=== PATIENT | female | born 1995 | race African-American/Black ===

== ENCOUNTER 2021-09-22 09:24 | Emergency (ER) | payer SELFPAY ==
[~2021-09-22] VITALS: Ht 162.6 cm; Wt 78.2 kg
[2021-09-22] MEDS ORDERED: DIPH25CA85 PO (09:36)
[2021-09-22] MEDS ORDERED: antidepressant PO (09:36)
[2021-09-22] MEDS ORDERED: SODIUM CHLORIDE 0.9% 1,000 ML IV ONE (10:00)
[2021-09-22] MEDS ORDERED: ONDANSETRON HCL 4 MG/2 ML VIAL IVP ONE (10:00)
[2021-09-22 10:07] LABS: BASOPHILS % (AUTO) 0.5 % (0.0-2.0); EOSINOPHILS % (AUTO) 0.5 % (1.0-6.0); HEMATOCRIT 38.2 % (36-46); LYMPHOCYTES # (AUTO) 1.4 K/uL (1.0-4.8); MEAN CORPUSCULAR HEMOGLOBIN 30.9 pg (26.0-34.0); MEAN CORPUSCULAR HGB CONC 34.1 G/dL (31.0-37.0); MEAN CORPUSCULAR VOLUME 91 fL (80-100); MONOCYTES # (AUTO) 0.4 K/uL (0.1-1.0); MONOCYTES % (AUTO) 6.4 % (2.0-9.0); NEUTROPHILS # (AUTO) 4.6 K/uL (1.8-7.7); NEUTROPHILS % (AUTO) 70.6 % (40.0-70.0); PLATELET COUNT (AUTO) 445 K/uL (150-450); RED BLOOD CELL COUNT(AUTO) 4.22 MIL/uL (4.00-5.20); RED CELL DISTRIBUTION WIDTH 13.5 % (11.5-14.5)
[2021-09-22 10:21] LABS: ANION GAP 10 mmol/L (8-16); CALCIUM, TOTAL 9.4 mg/dL (8.8-10.5); CARBON DIOXIDE 27 mmol/L (22-29); CHLORIDE 101 mmol/L (98-107); CREATININE 0.79 mg/dL (0.60-1.30); GLOMERULAR FILTR. RATE CALC > 60 mL/min (>60); GLUCOSE,RANDOM 99 mg/dL (70-110); POTASSIUM 3.7 mmol/L (3.5-5.1); SODIUM SERUM 138 mmol/L (136-145); UREA NITROGEN, BLOOD 10 mg/dL (7-18)
[2021-09-22 10:24] LABS: COVID AG,FIA SOURCE NASAL SWAB
[2021-09-22 10:32] LABS: ALANINE AMINOTRANSFERASE 19 U/L (12-78); ALBUMIN 4.1 g/dL (3.4-5.0); ALKALINE PHOSPHATASE 57 U/L (46-116); ASPARTATE AMINOTRANSFERASE 10 U/L (15-37); BILIRUBIN,TOTAL 0.4 mg/dL (0.1-1.0); HCG,QUANTITATIVE < 1 mIU/mL (0-6); LIPASE 108 U/L (73-393); TOTAL PROTEIN, SERUM 8.6 g/dL (6.4-8.2)
[2021-09-22 11:06] LABS: INFLUENZA TYPE A NEGATIVE FOR TYPE A (NEGATIVE); INFLUENZA TYPE B NEGATIVE FOR TYPE B (NEGATIVE)
[2021-09-22 12:01] LABS: APPEARANCE,URINE HAZY (CLEAR); BILIRUBIN,URINE NEGATIVE (NEGATIVE); GLUCOSE, URINE (UA) NEGATIVE (NEGATIVE); KETONES,URINE =>150 mg/dL (NEGATIVE); LEUKOCYTE ESTERASE ,URINE TRACE (NEGATIVE); NITRATE,URINE NEGATIVE (NEGATIVE); OCCULT BLOOD,URINE NEGATIVE (NEGATIVE); PROTEIN,URINE 30-70 mg/dL (NEGATIVE); SPECIFIC GRAVITIY, URINE 1.037 (1.003-1.030)
[2021-09-22 12:02] LABS: BACTERIA,URINE None Seen /HPF (None Seen); RBC,URINE None Seen /HPF (0-2); SQUAMOUS EPITHELIAL CELL,UR Few /LPF (None Seen); WBC,URINE 0-2 /HPF (0-5)
[2021-09-22] MEDS ORDERED: ONDA-104 PO (12:40)
[2021-09-22 13:21] VITALS: BP 121/73
== END 2021-09-22 13:23 | disposition home or self-care (01) ==
LOC: EMS 09:28
DX: R10.30 Lower abdominal pain, unspecified (principal); R11.2 Nausea with vomiting, unspecified; Z79.899 Other long term (current) drug therapy
CPT/HCPCS: 99283; 96374; 96361; 87426; 80053; 81001; 83690; 84702; 85025; 87804; 36415; J2405; J7030

== ENCOUNTER 2021-09-27 11:34 | Emergency (ER) | payer OTHER ==
[~2021-09-27] VITALS: Ht 162.6 cm; Wt 77.3 kg
[~2021-09-27 11:34] MED LIST: DIPH25CA85 PO; ONDA-104 PO; antidepressant PO
[2021-09-27] MEDS ORDERED: ONDANSETRON HCL 4 MG/2 ML VIAL IVP ONE (13:30)
[2021-09-27] MEDS ORDERED: KETOROLAC TROMETHAMINE 30 MG/ML VIAL IVP ONE (13:30)
[2021-09-27] MEDS ORDERED: SODIUM CHLORIDE 0.9% 1,000 ML IV ONE (13:30)
[2021-09-27 13:31] LABS: BASOPHILS % (AUTO) 0.3 % (0.0-2.0); EOSINOPHILS % (AUTO) 0.2 % (1.0-6.0); HEMOGLOBIN 13.8 g/dL (12.0-16.0); LYMPHOCYTES % (AUTO) 23.9 % (22.0-44.0); MEAN CORPUSCULAR HEMOGLOBIN 30.7 pg (26.0-34.0); MEAN CORPUSCULAR HGB CONC 33.6 G/dL (31.0-37.0); MEAN CORPUSCULAR VOLUME 91 fL (80-100); MONOCYTES # (AUTO) 0.6 K/uL (0.1-1.0); MONOCYTES % (AUTO) 7.2 % (2.0-9.0); NEUTROPHILS # (AUTO) 5.7 K/uL (1.8-7.7); NEUTROPHILS % (AUTO) 68.4 % (40.0-70.0); PLATELET COUNT (AUTO) 498 K/uL (150-450); RED BLOOD CELL COUNT(AUTO) 4.49 MIL/uL (4.00-5.20); RED CELL DISTRIBUTION WIDTH 13.3 % (11.5-14.5)
[2021-09-27 13:41] LABS: ANION GAP 15 mmol/L (8-16); CALCIUM, TOTAL 9.4 mg/dL (8.8-10.5); CARBON DIOXIDE 19 mmol/L (22-29); CHLORIDE 101 mmol/L (98-107); CREATININE 0.77 mg/dL (0.60-1.30); GLUCOSE,RANDOM 64 mg/dL (70-110); POTASSIUM 4.1 mmol/L (3.5-5.1); SODIUM SERUM 135 mmol/L (136-145); UREA NITROGEN, BLOOD 6 mg/dL (7-18)
[2021-09-27 13:46] LABS: ALANINE AMINOTRANSFERASE 22 U/L (12-78); ALBUMIN 4.3 g/dL (3.4-5.0); ALKALINE PHOSPHATASE 65 U/L (46-116); ASPARTATE AMINOTRANSFERASE 18 U/L (15-37); BILIRUBIN,TOTAL 0.4 mg/dL (0.1-1.0); LIPASE 100 U/L (73-393)
[2021-09-27 13:47] LABS: GLOMERULAR FILTR. RATE CALC > 60 mL/min (>60)
[2021-09-27 14:14] LABS: APPEARANCE,URINE CLEAR (CLEAR); BILIRUBIN,URINE NEGATIVE (NEGATIVE); GLUCOSE, URINE (UA) NEGATIVE (NEGATIVE); KETONES,URINE =>150 mg/dL (NEGATIVE); LEUKOCYTE ESTERASE ,URINE NEGATIVE (NEGATIVE); NITRATE,URINE NEGATIVE (NEGATIVE); OCCULT BLOOD,URINE NEGATIVE (NEGATIVE); PROTEIN,URINE 30-70 mg/dL (NEGATIVE); SPECIFIC GRAVITIY, URINE 1.032 (1.003-1.030); UROBILINOGEN,URINE <=1.0 mg/dL (<=1.0)
[2021-09-27 14:22] LABS: BACTERIA,URINE None Seen /HPF (None Seen); RBC,URINE None Seen /HPF (0-2); WBC,URINE None Seen /HPF (0-5)
[2021-09-27 14:23] LABS: SQUAMOUS EPITHELIAL CELL,UR Moderate /LPF (None Seen)
[2021-09-27] MEDS ORDERED: FAMOTIDINE 10 MG/ML 2 ML VIAL IVP ONE (14:30)
[2021-09-27] MEDS ORDERED: MAG HYDROX/AL HYDROX/SIMETH 30 ML SUSP UDCUP PO ONE (14:30)
[2021-09-27] MEDS ORDERED: SODIUM CHLORIDE 0.9% 100 ML ONE (14:37)
[2021-09-27] MEDS ORDERED: IOHEXOL 350 MG/ML 100 ML VIAL ONE (14:37)
[2021-09-27] MEDS ORDERED: ONDA-104 PO (15:53)
[2021-09-27 15:57] VITALS: BP 116/66
== END 2021-09-27 16:20 | disposition home or self-care (01) ==
LOC: EMS 11:34
DX: R11.2 Nausea with vomiting, unspecified (principal); G43.909 Migraine, unspecified, not intractable, without status migrainosus; Z86.59 Personal history of other mental and behavioral disorders; Z98.890 Other specified postprocedural states; Z88.8 Allergy status to other drugs, medicaments and biological substances; Z91.018 Allergy to other foods
CPT/HCPCS: 99285; 74177; 96374; 76856; 96375; 96361; 80053; 81001; 83690; 84703; 85025; 36415; J3490; J1885; J2405; Q9967; J7030; J7050

== ENCOUNTER 2022-01-16 17:52 | Emergency (ER) | payer OTHER ==
[~2022-01-16] VITALS: Ht 162.6 cm; Wt 81.8 kg
[2022-01-16 18:02] VITALS: BP 141/69
[2022-01-16] MEDS ORDERED: KETOROLAC TROMETHAMINE 30 MG/ML VIAL IVP ONE (18:30)
[2022-01-16] MEDS ORDERED: ACETAMINOPHEN 500 MG TABLET PO ONE (18:30)
[2022-01-16] MEDS ORDERED: SODIUM CHLORIDE 0.9% 1,000 ML IV ONE (18:30)
[2022-01-16] MEDS ORDERED: MORPHINE SULFATE 2 MG/ML SYRINGE IVP ONE (18:30)
== END 2022-01-16 18:36 | disposition left against medical advice (07) ==
LOC: EMS 17:52
DX: M54.50 Low back pain, unspecified (principal); G43.909 Migraine, unspecified, not intractable, without status migrainosus; M51.36 Other intervertebral disc degeneration, lumbar region; G89.29 Other chronic pain; R50.9 Fever, unspecified; Z98.890 Other specified postprocedural states; Z91.02 Food additives allergy status; Z88.8 Allergy status to other drugs, medicaments and biological substances
CPT/HCPCS: 99281; J1885; J2270

== ENCOUNTER 2022-01-21 02:44 | Emergency (ER) | payer OTHER ==
[~2022-01-21] VITALS: Ht 162.6 cm; Wt 81.8 kg
[2022-01-21 03:16] LABS: COVID AG,FIA SOURCE NASOPHARYNGEAL
[2022-01-21 03:19] LABS: BASOPHILS % (AUTO) 0.5 % (0.0-2.0); EOSINOPHILS % (AUTO) 0.2 % (1.0-6.0); HEMOGLOBIN 14.5 g/dL (12.0-16.0); LYMPHOCYTES # (AUTO) 1.7 K/uL (1.0-4.8); LYMPHOCYTES % (AUTO) 39.2 % (22.0-44.0); MEAN CORPUSCULAR HGB CONC 33.7 G/dL (31.0-37.0); MEAN CORPUSCULAR VOLUME 92 fL (80-100); MONOCYTES # (AUTO) 0.5 K/uL (0.1-1.0); MONOCYTES % (AUTO) 11.7 % (2.0-9.0); NEUTROPHILS # (AUTO) 2.2 K/uL (1.8-7.7); NEUTROPHILS % (AUTO) 48.4 % (40.0-70.0); PLATELET COUNT (AUTO) 255 K/uL (150-450); RED BLOOD CELL COUNT(AUTO) 4.69 MIL/uL (4.00-5.20); RED CELL DISTRIBUTION WIDTH 13.3 % (11.5-14.5)
[2022-01-21 03:29] LABS: ANION GAP 10 mmol/L (8-16); CALCIUM, TOTAL 9.2 mg/dL (8.8-10.5); CARBON DIOXIDE 25 mmol/L (22-29); CHLORIDE 102 mmol/L (98-107); CREATININE 1.06 mg/dL (0.60-1.30); GLUCOSE,RANDOM 101 mg/dL (70-110); POTASSIUM 3.3 mmol/L (3.5-5.1); SODIUM SERUM 137 mmol/L (136-145); UREA NITROGEN, BLOOD 10 mg/dL (7-18)
[2022-01-21] MEDS ORDERED: MAG HYDROX/AL HYDROX/SIMETH 30 ML SUSP UDCUP PO ONE (03:30)
[2022-01-21] MEDS ORDERED: ACETAMINOPHEN 500 MG TABLET PO ONE (03:30)
[2022-01-21] MEDS ORDERED: ONDANSETRON HCL 4 MG TABLET PO ONE (03:30)
[2022-01-21] MEDS ORDERED: KETOROLAC TROMETHAMINE 30 MG/ML VIAL IM ONE (03:30)
[2022-01-21] MEDS ORDERED: FAMOTIDINE 20 MG TABLET PO ONE (03:30)
[2022-01-21 03:33] LABS: GLOMERULAR FILTR. RATE CALC > 60 mL/min (>60)
[2022-01-21 03:39] LABS: INFLUENZA TYPE A NEGATIVE FOR TYPE A (NEGATIVE); INFLUENZA TYPE B NEGATIVE FOR TYPE B (NEGATIVE)
[2022-01-21 03:41] LABS: ALANINE AMINOTRANSFERASE 14 U/L (12-78); ALBUMIN 4.2 g/dL (3.4-5.0); ALKALINE PHOSPHATASE 52 U/L (46-116); ASPARTATE AMINOTRANSFERASE 17 U/L (15-37); BILIRUBIN,TOTAL 0.4 mg/dL (0.1-1.0); HCG,QUANTITATIVE < 1 mIU/mL (0-6); LIPASE 141 U/L (73-393); TOTAL PROTEIN, SERUM 8.7 g/dL (6.4-8.2)
[2022-01-21] MEDS ORDERED: SODIUM CHLORIDE 0.9% 1,000 ML IV ONE (04:00)
[2022-01-21 05:26] VITALS: BP 122/60
== END 2022-01-21 06:42 | disposition home or self-care (01) ==
LOC: EMS 02:44
DX: U07.1 COVID-19 (principal); K52.9 Noninfective gastroenteritis and colitis, unspecified; G43.909 Migraine, unspecified, not intractable, without status migrainosus; M51.36 Other intervertebral disc degeneration, lumbar region; Z98.890 Other specified postprocedural states; Z91.018 Allergy to other foods; Z88.8 Allergy status to other drugs, medicaments and biological substances
CPT/HCPCS: 99284; 96360; 96361; 87426; 80053; 83690; 84702; 85025; 87804; 36415; 96372; G0480; J1885; Q0162; J7030

== ENCOUNTER 2022-01-28 10:07 | Emergency (ER) | payer OTHER ==
[~2022-01-28] VITALS: Ht 162.6 cm; Wt 81.8 kg
[2022-01-28 11:29] LABS: BASOPHILS % (AUTO) 0.6 % (0.0-2.0); EOSINOPHILS % (AUTO) 0.2 % (1.0-6.0); HEMATOCRIT 40.9 % (36-46); HEMOGLOBIN 13.9 g/dL (12.0-16.0); LYMPHOCYTES # (AUTO) 1.8 K/uL (1.0-4.8); LYMPHOCYTES % (AUTO) 28.1 % (22.0-44.0); MEAN CORPUSCULAR HEMOGLOBIN 30.3 pg (26.0-34.0); MEAN CORPUSCULAR VOLUME 89 fL (80-100); MONOCYTES # (AUTO) 0.9 K/uL (0.1-1.0); MONOCYTES % (AUTO) 14.3 % (2.0-9.0); NEUTROPHILS # (AUTO) 3.6 K/uL (1.8-7.7); NEUTROPHILS % (AUTO) 56.8 % (40.0-70.0); PLATELET COUNT (AUTO) 398 K/uL (150-450); RED BLOOD CELL COUNT(AUTO) 4.58 MIL/uL (4.00-5.20); RED CELL DISTRIBUTION WIDTH 13.2 % (11.5-14.5)
[2022-01-28] MEDS ORDERED: ONDANSETRON HCL 4 MG/2 ML VIAL IVP ONE (11:30)
[2022-01-28] MEDS ORDERED: SODIUM CHLORIDE 0.9% 1,000 ML IV ONE (11:30)
[2022-01-28 11:44] LABS: ANION GAP 18 mmol/L (8-16); CALCIUM, TOTAL 9.4 mg/dL (8.8-10.5); CARBON DIOXIDE 20 mmol/L (22-29); CHLORIDE 103 mmol/L (98-107); CREATININE 0.82 mg/dL (0.60-1.30); GLOMERULAR FILTR. RATE CALC > 60 mL/min (>60); GLUCOSE,RANDOM 91 mg/dL (70-110); POTASSIUM 3.1 mmol/L (3.5-5.1); SODIUM SERUM 141 mmol/L (136-145); UREA NITROGEN, BLOOD 10 mg/dL (7-18)
[2022-01-28 11:52] LABS: ALANINE AMINOTRANSFERASE 12 U/L (12-78); ALBUMIN 4.1 g/dL (3.4-5.0); ALKALINE PHOSPHATASE 44 U/L (46-116); ASPARTATE AMINOTRANSFERASE 10 U/L (15-37); BILIRUBIN,TOTAL 0.5 mg/dL (0.1-1.0); LIPASE 201 U/L (73-393); TOTAL PROTEIN, SERUM 8.6 g/dL (6.4-8.2)
[2022-01-28 15:15] LABS: APPEARANCE,URINE HAZY (CLEAR); GLUCOSE, URINE (UA) NEGATIVE (NEGATIVE); KETONES,URINE =>150 mg/dL (NEGATIVE); LEUKOCYTE ESTERASE ,URINE TRACE (NEGATIVE); NITRATE,URINE NEGATIVE (NEGATIVE); OCCULT BLOOD,URINE LARGE (NEGATIVE); PROTEIN,URINE 30-70 mg/dL (NEGATIVE); SPECIFIC GRAVITIY, URINE 1.023 (1.003-1.030)
[2022-01-28 15:19] LABS: BILIRUBIN,URINE SMALL (NEGATIVE)
[2022-01-28 15:36] LABS: AMORPHOUS SEDIMENT,UR Few /LPF (None Seen); BACTERIA,URINE Few /HPF (None Seen); FINE GRANULAR CASTS,URINE 0-2 /LPF (None Seen); SQUAMOUS EPITHELIAL CELL,UR Few /LPF (None Seen)
[2022-01-28 16:54] VITALS: BP 106/69
== END 2022-01-28 17:12 | disposition home or self-care (01) ==
LOC: EMS 10:26
DX: R11.2 Nausea with vomiting, unspecified (principal); K80.20 Calculus of gallbladder without cholecystitis without obstruction; Z98.890 Other specified postprocedural states; Z91.018 Allergy to other foods; Z88.8 Allergy status to other drugs, medicaments and biological substances
CPT/HCPCS: 99285; 96374; 76705; 96361; 80053; 81001; 83690; 84703; 85025; 36415; J2405; J7030